=== PATIENT | male | born 1965 | race Two or more races ===

== ENCOUNTER 2020-03-08 11:15 | Inpatient (IN) | payer OTHER ==
[~2020-03-08] VITALS: Ht 182.9 cm; Wt 116.6 kg
[2020-03-08] MEDS ORDERED: AMLODIPINE BESYL5 MG PO (13:17)
[2020-03-08] MEDS ORDERED: ATORVASTATIN CA10 MG PO (13:17)
[2020-03-08] MEDS ORDERED: ECOTRIN325 M1 PO (13:18)
[2020-03-08] MEDS ORDERED: MAGNESIUM200 MG PO (13:18)
[2020-03-08] MEDS ORDERED: PROBIOTIC1 EAC2 PO (13:18)
[2020-03-08] MEDS ORDERED: PEPCID20 MG PO (13:19)
== END 2020-03-20 18:27 | disposition home or self-care (01) | DRG 329 ==
LOC: O/R 03-12 06:43 → SURH 03-12 06:43
PROVIDERS: ADMIT Colon & Rectal Surgery; ATTEND Colon & Rectal Surgery
PROC: 0WQF4ZZ Repair Abdominal Wall, Percutaneous Endoscopic Approach (ICD-10-PCS; 2020-03-12)
PROC: 4A033R1 Measurement of Arterial Saturation, Peripheral, Percutaneous Approach (ICD-10-PCS; 2020-03-12)
PROC: 0D7N8ZZ Dilation of Sigmoid Colon, Via Natural or Artificial Opening Endoscopic (ICD-10-PCS; 2020-03-12)
PROC: 0DTF4ZZ Resection of Right Large Intestine, Percutaneous Endoscopic Approach (ICD-10-PCS; principal; 2020-03-12 07:00)
DX: K43.6 Other and unspecified ventral hernia with obstruction, without gangrene (principal); K56.2 Volvulus; K59.39 Other megacolon; K56.7 Ileus, unspecified; I10 Essential (primary) hypertension; Z20.828 Contact with and (suspected) exposure to other viral communicable diseases; E66.8 Other obesity; E86.0 Dehydration; E87.6 Hypokalemia

== ENCOUNTER 2021-09-14 06:00 | Day surgery (SDC) | payer OTHER ==
[~2021-09-14 06:00] MED LIST: AMLODIPINE BESYL5 MG PO; ATORVASTATIN CA10 MG PO; ECOTRIN325 M1 PO; MAGNESIUM200 MG PO; PEPCID20 MG PO; PROBIOTIC1 EAC2 PO
== END 2021-09-14 10:30 | disposition home or self-care (01) ==
LOC: AMB-ENDOS 06:00
PROVIDERS: ATTEND Colon & Rectal Surgery
DX: R19.4 Change in bowel habit (principal); Z20.822 Contact with and (suspected) exposure to COVID-19; K63.89 Other specified diseases of intestine; K64.4 Residual hemorrhoidal skin tags; I10 Essential (primary) hypertension